=== PATIENT | female | born 1955 | race Two or more races ===

== ENCOUNTER → 2016-05-15 | Outpatient (REF) | payer OTHER ==
[2016-05-15 12:25] LABS: ALBUMIN 4.1 GM/DL (3.2-5.2); ALBUMIN/GLOBULIN RATIO 1.41 (1.00-1.93); ALKALINE PHOSPHATASE 89 U/L (45-117); ALT/SGPT 43 U/L (12-78); ANION GAP 9 MEQ/L (8-16); AST/SGOT 34 U/L (15-37); BILIRUBIN,TOTAL 0.5 MG/DL (0.2-1.0); BLOOD UREA NITROGEN 11 MG/DL (7-18); CALCIUM LEVEL 9.4 MG/DL (8.5-10.1); CARBON DIOXIDE LEVEL 29 MEQ/L (21-32); CHLORIDE LEVEL 104 MEQ/L (98-107); CHOLESTEROL LEVEL 164 MG/DL (<200); GLOMERULAR FILTRATION RATE > 60.0 (>51); GLUCOSE, FASTING 166 MG/DL (70-105); SODIUM LEVEL 142 MEQ/L (136-145); TRIGLYCERIDES LEVEL 158 MG/DL (<150)
== END ==
LOC: M SFHCCLAY 11:09
PROVIDERS: ATTEND Family Medicine
DX: E78.5 Hyperlipidemia, unspecified (principal); E11.9 Type 2 diabetes mellitus without complications; I10 Essential (primary) hypertension

== ENCOUNTER → 2016-06-16 | Outpatient (CLI) | payer OTHER ==
[~2016-06-16] VITALS: Ht 162.6 cm; Wt 102.5 kg
[~2016-06-16] MED LIST: CYCL10TA PO; LIDOCAINE 2% INJ 100 MG/5 ML SDV (FOR ANES.) As Ordered ONE; LISI20TA PO; MIDAZOLAM INJ 2 MG/2 ML VIAL (J2250) As Ordered ONE; NEXI20CA PO; NS 1,000 ML IV SCH; PRAV40TA2 PO; PROPOFOL 200 MG/20 ML VIAL As Ordered ONE
--- NOTE | 2016-06-16 12:07 | ROOR ---
Patient Name: Diana Mathis Procedure Date: 06/16/2016 11:57 AM Date of : 1955 Age: 60 Room: [facility] Gender: Female Note Status: Finalized Procedure: Upper GI endoscopy Indications: Heartburn Providers: Jose Alberto ALFARO MD Referring MD: JAYASHREE PINTO DO Requesting Provider: Medicines: Monitored Anesthesia Care Complications: No immediate complications. Procedure: Pre-Anesthesia Assessment: - The heart rate, respiratory rate, oxygen saturations, blood pressure, adequacy of pulmonary ventilation, and response to care were monitored throughout the procedure. The Endoscope was introduced through the mouth, and advanced to the second part of duodenum. The upper GI endoscopy was accomplished without difficulty. The patient tolerated the procedure well. Findings: The esophagus was normal. The stomach was normal. The examined duodenum was normal. Impression: - Normal esophagus. - Normal stomach. - Normal examined duodenum. - No specimens collected. Recommendation: - Continue present medications. - Follow an antireflux regimen. Jose Alberto Alfaro MD Jose Alberto ALFARO MD 06/16/2016 12:06:31 PM This report has been signed electronically. Number of Addenda: 0 Note Initiated On: 06/16/2016 11:57 AM Estimated Blood Loss: Estimated blood loss: none.
--- NOTE | 2016-06-16 12:21 | ROOR ---
Patient Name: Diana Mathis Procedure Date: 06/16/2016 11:58 AM Date of : 1955 Age: 60 Room: [facility] Gender: Female Note Status: Finalized Procedure: Colonoscopy Indications: Screening for colorectal malignant neoplasm Providers: Jose Alberto ALFARO MD Referring MD: JAYASHREE PINTO DO Requesting Provider: Medicines: Monitored Anesthesia Care Complications: No immediate complications. Procedure: Pre-Anesthesia Assessment: - The heart rate, respiratory rate, oxygen saturations, blood pressure, adequacy of pulmonary ventilation, and response to care were monitored throughout the procedure. The Colonoscope was introduced through the anus and advanced to the cecum, identified by appendiceal orifice and ileocecal valve. The colonoscopy was performed without difficulty. The patient tolerated the procedure well. The quality of the bowel preparation was good. Findings: The perianal exam findings include skin tags. (Exam: Complete, Prep: Good or Excellent.) Small Internal Hemorrhoids. The entire examined colon appeared normal on direct and retroflexion views. Impression: - Perianal skin tags found on perianal exam. - Small Internal Hemorrhoids. - The entire colon is normal on direct and retroflexion views. - No specimens collected. Recommendation: - Repeat colonoscopy in 10 years for screening purposes. Jose Alberto Alfaro MD Jose Alberto ALFARO MD 06/16/2016 12:21:26 PM This report has been signed electronically. Number of Addenda: 0 Note Initiated On: 06/16/2016 11:58 AM Estimated Blood Loss: Estimated blood loss: none.
[2016-06-16 12:40] VITALS: BP 129/86
== END | disposition home or self-care (01) ==
LOC: M OPP 09:39
PROVIDERS: ATTEND Internal Medicine Gastroenterology
DX: Z12.11 Encounter for screening for malignant neoplasm of colon (principal); K64.4 Residual hemorrhoidal skin tags; K64.8 Other hemorrhoids; Z86.010 Personal history of colon polyps; R12 Heartburn; I10 Essential (primary) hypertension; E78.5 Hyperlipidemia, unspecified; Z80.1 Family history of malignant neoplasm of trachea, bronchus and lung; Z80.49 Family history of malignant neoplasm of other genital organs; Z79.899 Other long term (current) drug therapy
CPT/HCPCS: 43235; 99156; 99157; G0121

== ENCOUNTER → 2017-01-14 | Outpatient (CLI) | payer OTHER ==
[~2017-01-14] MED LIST changes: -LIDOCAINE 2% INJ 100 MG/5 ML SDV (FOR ANES.) As Ordered ONE; -MIDAZOLAM INJ 2 MG/2 ML VIAL (J2250) As Ordered ONE; -NS 1,000 ML IV SCH; -PROPOFOL 200 MG/20 ML VIAL As Ordered ONE
[2017-01-14 20:29] LABS: ALBUMIN 4.2 GM/DL (3.2-5.2); ALBUMIN/GLOBULIN RATIO 1.27 (1.00-1.93); ALKALINE PHOSPHATASE 84 U/L (45-117); ALT/SGPT 25 U/L (12-78); ANION GAP 9 MEQ/L (8-16); AST/SGOT 17 U/L (15-37); BILIRUBIN,TOTAL 0.5 MG/DL (0.2-1.0); BLOOD UREA NITROGEN 16 MG/DL (7-18); CALCIUM LEVEL 9.6 MG/DL (8.5-10.1); CARBON DIOXIDE LEVEL 28 MEQ/L (21-32); CHLORIDE LEVEL 103 MEQ/L (98-107); CHOLESTEROL LEVEL 170 MG/DL (<200); CREATININE FOR GFR 0.73 MG/DL (0.55-1.02); GLOMERULAR FILTRATION RATE > 60.0 (>51); GLUCOSE, FASTING 91 MG/DL (70-105); POTASSIUM SERUM 4.3 MEQ/L (3.5-5.1); SODIUM LEVEL 140 MEQ/L (136-145); TOTAL PROTEIN 7.5 GM/DL (6.4-8.2); TRIGLYCERIDES LEVEL 172 MG/DL (<150)
== END ==
LOC: M SMT 12:58
PROVIDERS: ATTEND Family Medicine
DX: E78.5 Hyperlipidemia, unspecified (principal); E11.65 Type 2 diabetes mellitus with hyperglycemia

== ENCOUNTER → 2017-04-20 | Outpatient (REF) | payer OTHER | LOC: M LAB REF 18:41 | DX: D23.11 Other benign neoplasm of skin of right eyelid, including canthus (principal); D23.12 Other benign neoplasm of skin of left eyelid, including canthus; D22.11 Melanocytic nevi of right eyelid, including canthus ==

== ENCOUNTER → 2017-08-05 | Outpatient (REF) | payer OTHER ==
[2017-08-05 19:32] LABS: ESTIMATED AVERAGE GLUCOSE 151 MG/DL (60-110); HEMOGLOBIN A1c 6.9 %
== END ==
LOC: M LABDRAWC 17:30
DX: E11.65 Type 2 diabetes mellitus with hyperglycemia (principal)
CPT/HCPCS: 83036

== ENCOUNTER → 2017-08-12 | Outpatient (CLI) | payer OTHER | LOC: M WHC 12:42 | DX: Z12.39 Encounter for other screening for malignant neoplasm of breast (principal) ==

== ENCOUNTER → 2018-02-07 | Outpatient (CLI) | payer OTHER ==
[2018-02-07 16:26] LABS: ALBUMIN 4.3 GM/DL (3.2-5.2); ALBUMIN/GLOBULIN RATIO 1.43 (1.00-1.93); ALKALINE PHOSPHATASE 104 U/L (45-117); ALT/SGPT 26 U/L (12-78); ANION GAP 10 MEQ/L (8-16); AST/SGOT 15 U/L (7-37); BILIRUBIN,TOTAL 0.6 MG/DL (0.2-1.0); BLOOD UREA NITROGEN 15 MG/DL (7-18); CALCIUM LEVEL 9.6 MG/DL (8.8-10.2); CARBON DIOXIDE LEVEL 30 MEQ/L (21-32); CHLORIDE LEVEL 99 MEQ/L (98-107); CHOLESTEROL LEVEL 152 MG/DL (<200); CHOLESTEROL RISK RATIO 3.304 (<5); CREATININE FOR GFR 0.63 MG/DL (0.55-1.30); GLOMERULAR FILTRATION RATE > 60.0 (>45); GLUCOSE, FASTING 89 MG/DL (70-100); HDL CHOLESTEROL 46 MG/DL (>40); LDL CHOLESTEROL 61 MG/DL (<100); NON-HDL-C 106 MG/DL; SODIUM LEVEL 139 MEQ/L (136-145); TOTAL PROTEIN 7.3 GM/DL (6.4-8.2); TRIGLYCERIDES LEVEL 223 MG/DL (<150)
[2018-02-07 16:57] LABS: ESTIMATED AVERAGE GLUCOSE 143 MG/DL (60-110); HEMOGLOBIN A1c 6.6 %
== END ==
LOC: M LAB 15:22
DX: E11.9 Type 2 diabetes mellitus without complications (principal)
CPT/HCPCS: 80053

== ENCOUNTER → 2018-09-10 | Outpatient (CLI) | payer OTHER ==
[2018-09-10 10:29] LABS: BASO # 0.1 10^3/uL (0.0-0.2); EOS # 0.2 10^3/uL (0.0-0.50); EOS % 2.1 % (0.0-3.0); HEMATOCRIT 43.1 % (36.0-47.0); HEMOGLOBIN 14.7 g/dl (12.0-15.5); LYMPH # 2.4 10^3/uL (1.5-4.5); LYMPH % 34.2 % (24.0-44.0); MEAN CORPUSCULAR HEMOGLOBIN 29.8 pg (27.0-33.0); MEAN CORPUSCULAR HGB CONC 34.1 g/dl (32.0-36.5); MEAN CORPUSCULAR VOLUME 87.2 fl (80.0-96.0); MONO # 0.4 10^3/uL (0.0-0.8); MONO % 5.5 % (0.0-5.0); NEUTROPHILS % 56.6 % (36.0-66.0); PLATELET COUNT, AUTOMATED 310 10^3/uL (150-450); RED BLOOD COUNT 4.94 10^6/uL (4.00-5.40)
[2018-09-10 10:48] LABS: HEMOGLOBIN A1c 7.2 %
[2018-09-10 11:01] LABS: ALBUMIN 3.9 GM/DL (3.2-5.2); ALT/SGPT 37 U/L (12-78); BILIRUBIN,TOTAL 0.5 MG/DL (0.2-1.0); BLOOD UREA NITROGEN 18 MG/DL (7-18); CALCIUM LEVEL 9.2 MG/DL (8.8-10.2); CARBON DIOXIDE LEVEL 29 MEQ/L (21-32); CHLORIDE LEVEL 105 MEQ/L (98-107); CHOLESTEROL LEVEL 149 MG/DL (<200); CHOLESTEROL RISK RATIO 3.386 (<5); CREATININE FOR GFR 0.72 MG/DL (0.55-1.30); GLOMERULAR FILTRATION RATE > 60.0 (>45); GLUCOSE, FASTING 130 MG/DL (70-100); HDL CHOLESTEROL 44 MG/DL (>40); LDL CHOLESTEROL 51 MG/DL (<100); NON-HDL-C 105 MG/DL; POTASSIUM SERUM 4.1 MEQ/L (3.5-5.1); SODIUM LEVEL 140 MEQ/L (136-145); TOTAL PROTEIN 7.1 GM/DL (6.4-8.2); TRIGLYCERIDES LEVEL 270 MG/DL (<150)
== END ==
LOC: M LAB 09:57
PROVIDERS: ATTEND Nurse Practitioner Family
DX: I10 Essential (primary) hypertension (principal); E11.9 Type 2 diabetes mellitus without complications; E66.9 Obesity, unspecified; E78.5 Hyperlipidemia, unspecified

== ENCOUNTER → 2018-09-13 | Outpatient (CLI) | payer OTHER ==
--- NOTE | 2018-09-13 16:53 | REP ---
LEFT SHOULDER, THREE VIEWS: Three views of the left shoulder are performed. No acute fracture or dislocation is seen. There is mild narrowing of the acromioclavicular joint. There are no other significant findings. IMPRESSION: Mild degenerative changes of the acromioclavicular joint without other acute finding.
== END ==
LOC: M CLY 14:52
PROVIDERS: ATTEND Nurse Practitioner Family
DX: M19.012 Primary osteoarthritis, left shoulder (principal)
CPT/HCPCS: 73030; G0463

== ENCOUNTER → 2019-05-01 | Outpatient (REF) | payer OTHER ==
[~2019-05-01] MED LIST changes: -LISI20TA PO; +LISI20TA19 PO
[2019-05-02 12:42] LABS: BLOOD UREA NITROGEN 11 MG/DL (7-18); CALCIUM LEVEL 9.4 MG/DL (8.8-10.2); CARBON DIOXIDE LEVEL 30 MEQ/L (21-32); CHLORIDE LEVEL 103 MEQ/L (98-107); CREATININE FOR GFR 0.68 MG/DL (0.55-1.30); GLOMERULAR FILTRATION RATE > 60.0 (>45); GLUCOSE, FASTING 100 MG/DL (70-100); POTASSIUM SERUM 4.1 MEQ/L (3.5-5.1); SODIUM LEVEL 140 MEQ/L (136-145)
[2019-05-02 13:08] LABS: HEMOGLOBIN A1c 7.2 %
== END ==
LOC: M SFHCCLAY 14:02
PROVIDERS: ATTEND Nurse Practitioner Family
DX: E11.9 Type 2 diabetes mellitus without complications (principal)
CPT/HCPCS: 80048; 82672; 83036; 90471; 90472; 90682; 90732; G0463

== ENCOUNTER → 2019-11-04 | Outpatient (REF) | payer OTHER ==
[~2019-11-04] MED LIST changes: +CYCL-707 PO; -CYCL10TA PO; -LISI20TA19 PO; +LISI20TA35 PO
[2019-12-02 09:53] LABS: BASO # 0.1 10^3/uL (0.0-0.2); EOS # 0.2 10^3/uL (0.0-0.5); EOS % 2.5 % (0.0-3.0); HEMATOCRIT 44.2 % (36.0-47.0); HEMOGLOBIN 14.1 g/dl (12.0-15.5); LYMPH # 2.9 10^3/uL (1.5-5.0); LYMPH % 35.9 % (24.0-44.0); MEAN CORPUSCULAR HGB CONC 31.9 g/dl (32.0-36.5); MEAN CORPUSCULAR VOLUME 90.9 fl (80.0-96.0); MONO # 0.5 10^3/uL (0.0-0.8); MONO % 6.6 % (0.0-5.0); NEUTROPHILS # 4.3 10^3/uL (1.5-8.5); NEUTROPHILS % 53.8 % (36.0-66.0); PLATELET COUNT, AUTOMATED 341 10^3/uL (150-450); RED BLOOD COUNT 4.86 10^6/uL (4.00-5.40)
[2019-12-18 15:53] LABS: ALBUMIN 3.8 GM/DL (3.2-5.2); ALT/SGPT 37 U/L (12-78); BILIRUBIN,TOTAL 0.6 MG/DL (0.2-1.0); BLOOD UREA NITROGEN 15 MG/DL (7-18); CALCIUM LEVEL 9.5 MG/DL (8.8-10.2); CARBON DIOXIDE LEVEL 30 MEQ/L (21-32); CHLORIDE LEVEL 106 MEQ/L (98-107); CHOLESTEROL LEVEL 124 MG/DL (<200); CHOLESTEROL RISK RATIO 3.444 (<5); CREATININE FOR GFR 0.76 MG/DL (0.55-1.30); GLOMERULAR FILTRATION RATE > 60.0 (>45); GLUCOSE, FASTING 155 MG/DL (70-100); HDL CHOLESTEROL 36 MG/DL (>40); LDL CHOLESTEROL 49 MG/DL (<100); NON-HDL-C 88 MG/DL; SODIUM LEVEL 140 MEQ/L (136-145); TOTAL PROTEIN 7.1 GM/DL (6.4-8.2); TRIGLYCERIDES LEVEL 194 MG/DL (<150)
== END ==
LOC: M WUC 09:57
PROVIDERS: ATTEND Nurse Practitioner Family
DX: E11.9 Type 2 diabetes mellitus without complications (principal)

== ENCOUNTER → 2020-05-20 | Outpatient (CLI) | payer OTHER ==
[2020-05-20 17:46] LABS: HEMOGLOBIN A1c 6.8 %
[2020-05-20 18:04] LABS: ALBUMIN 3.7 GM/DL (3.2-5.2); ALT/SGPT 25 U/L (12-78); BILIRUBIN,TOTAL 0.4 MG/DL (0.2-1.0); BLOOD UREA NITROGEN 16 MG/DL (7-18); CALCIUM LEVEL 9.6 MG/DL (8.8-10.2); CARBON DIOXIDE LEVEL 32 MEQ/L (21-32); CHLORIDE LEVEL 103 MEQ/L (98-107); CHOLESTEROL LEVEL 153 MG/DL (<200); CHOLESTEROL RISK RATIO 3.731 (<5); CREATININE FOR GFR 0.58 MG/DL (0.55-1.30); GLOMERULAR FILTRATION RATE > 60.0 (>45); GLUCOSE, FASTING 97 MG/DL (70-100); HDL CHOLESTEROL 41 MG/DL (>40); LDL CHOLESTEROL 60 MG/DL (<100); NON-HDL-C 112 MG/DL; SODIUM LEVEL 140 MEQ/L (136-145); TOTAL PROTEIN 6.8 GM/DL (6.4-8.2); TRIGLYCERIDES LEVEL 259 MG/DL (<150)
== END ==
LOC: M WUC 15:21
PROVIDERS: ATTEND Nurse Practitioner Family
DX: E78.5 Hyperlipidemia, unspecified (principal); E11.9 Type 2 diabetes mellitus without complications; I10 Essential (primary) hypertension; E66.9 Obesity, unspecified

== ENCOUNTER → 2020-06-17 | Outpatient (REF) | payer OTHER | LOC: M SFHCCLAY 14:18 | PROVIDERS: ATTEND Nurse Practitioner Family | DX: Z12.4 Encounter for screening for malignant neoplasm of cervix (principal) ==

== ENCOUNTER → 2021-02-12 | Outpatient (REF) | payer OTHER | LOC: M LAB REF 14:14 | PROVIDERS: ATTEND Physician Assistant | DX: D49.2 Neoplasm of unspecified behavior of bone, soft tissue, and skin (principal) ==

== ENCOUNTER → 2021-04-17 | Outpatient (REF) | payer OTHER, SELFPAY ==
[2021-04-18 12:21] LABS: BASO # 0.1 10^3/uL (0.0-0.2); BASO % 0.8 % (0.0-1.0); EOS # 0.1 10^3/uL (0.0-0.5); EOS % 1.3 % (0.0-3.0); HEMATOCRIT 44.6 % (36.0-47.0); HEMOGLOBIN 14.7 g/dl (12.0-15.5); LYMPH # 3.9 10^3/uL (1.5-5.0); MEAN CORPUSCULAR HEMOGLOBIN 29.3 pg (27.0-33.0); MEAN CORPUSCULAR VOLUME 88.8 fl (80.0-96.0); MONO # 0.5 10^3/uL (0.0-0.8); MONO % 5.2 % (2.0-8.0); NEUTROPHILS # 5.6 10^3/uL (1.5-8.5); NEUTROPHILS % 54.4 % (36.0-66.0); PLATELET COUNT, AUTOMATED 388 10^3/uL (150-450); RED BLOOD COUNT 5.02 10^6/uL (4.00-5.40); WHITE BLOOD COUNT 10.2 10^3/uL (4.0-10.0)
[2021-04-18 12:57] LABS: ALBUMIN 4.4 GM/DL (3.2-5.2); ALT/SGPT 34 U/L (12-78); BILIRUBIN,TOTAL 0.5 MG/DL (0.2-1.0); BLOOD UREA NITROGEN 16 MG/DL (7-18); CARBON DIOXIDE LEVEL 29 MEQ/L (21-32); CHLORIDE LEVEL 101 MEQ/L (98-107); FREE T4 1.06 NG/DL (0.76-1.46); GLOMERULAR FILTRATION RATE > 60.0 (>45); GLUCOSE, FASTING 113 MG/DL (70-100); POTASSIUM SERUM 5.6 MEQ/L (3.5-5.1); SODIUM LEVEL 137 MEQ/L (136-145); TOTAL PROTEIN 7.6 GM/DL (6.4-8.2)
[2021-04-18 13:05] LABS: HEMOGLOBIN A1c 6.6 %
== END ==
LOC: M SFHCCLAY 13:42
PROVIDERS: ATTEND Nurse Practitioner Family
DX: E11.9 Type 2 diabetes mellitus without complications (principal); I10 Essential (primary) hypertension

== ENCOUNTER → 2021-11-19 | Outpatient (REF) | payer OTHER ==
[2021-11-19 17:37] LABS: ALBUMIN 4.1 GM/DL (3.2-5.2); ALT/SGPT 28 U/L (12-78); BILIRUBIN,TOTAL 0.5 MG/DL (0.2-1.0); BLOOD UREA NITROGEN 13 MG/DL (7-18); CALCIUM LEVEL 9.4 MG/DL (8.8-10.2); CARBON DIOXIDE LEVEL 28 MEQ/L (21-32); CHLORIDE LEVEL 104 MEQ/L (98-107); CHOLESTEROL LEVEL 166 MG/DL (<200); CHOLESTEROL RISK RATIO 4.048 (<5); CREATININE FOR GFR 0.66 MG/DL (0.55-1.30); GLOMERULAR FILTRATION RATE > 60.0 (>45); GLUCOSE, FASTING 139 MG/DL (70-100); HDL CHOLESTEROL 41 MG/DL (>40); LDL CHOLESTEROL 47 MG/DL (<100); NON-HDL-C 125 MG/DL; POTASSIUM SERUM 4.4 MEQ/L (3.5-5.1); SODIUM LEVEL 138 MEQ/L (136-145); TOTAL PROTEIN 7.4 GM/DL (6.4-8.2); TRIGLYCERIDES LEVEL 391 MG/DL (<150)
[2021-11-19 17:55] LABS: HEMOGLOBIN A1c 6.9 %
== END ==
LOC: M SFHCCLAY 11:16
PROVIDERS: ATTEND Nurse Practitioner Family
DX: I10 Essential (primary) hypertension (principal); E11.9 Type 2 diabetes mellitus without complications

== ENCOUNTER → 2022-04-20 | Outpatient (CLI) | payer OTHER ==
[2022-04-20 10:24] LABS: ALBUMIN 3.8 G/DL (3.2-5.2); ALKALINE PHOSPHATASE 90 U/L (46-116); ALT/SGPT 23 U/L (7.0-40); AST/SGOT 21 U/L (<34); BILIRUBIN,TOTAL 0.5 MG/DL (0.3-1.2); BLOOD UREA NITROGEN 15 MG/DL (9-23); CALCIUM LEVEL 9.8 MG/DL (8.3-10.6); CARBON DIOXIDE LEVEL 26 MMOL/L (20-31); CHLORIDE LEVEL 104 MMOL/L (98-107); CREATININE FOR GFR 0.61 MG/DL (0.55-1.30); GLOMERULAR FILTRATION RATE > 60.0 (>45); GLUCOSE, FASTING 156 MG/DL (74-106); POTASSIUM SERUM 4.2 MMOL/L (3.5-5.1); SODIUM LEVEL 138 MMOL/L (136-145); TOTAL PROTEIN 6.6 G/DL (5.7-8.2)
[2022-04-20 10:59] LABS: HEMOGLOBIN A1c 6.8 % (4.0-6.0)
== END ==
LOC: M LAB 09:21
PROVIDERS: ATTEND Nurse Practitioner Family
DX: E78.5 Hyperlipidemia, unspecified (principal); E11.9 Type 2 diabetes mellitus without complications; I10 Essential (primary) hypertension

== ENCOUNTER → 2022-07-22 | Outpatient (REF) | payer OTHER | LOC: M SFHCCLAY 17:31 | PROVIDERS: ATTEND Nurse Practitioner Family | DX: Z01.419 Encounter for gynecological examination (general) (routine) without abnormal findings (principal) ==

== ENCOUNTER → 2022-07-30 | Outpatient (CLI) | payer OTHER ==
[2022-07-30 10:57] LABS: HEMATOCRIT 42.5 % (36.0-47.0); MEAN CORPUSCULAR HEMOGLOBIN 29.2 pg (27.0-33.0); MEAN CORPUSCULAR HGB CONC 32.9 g/dl (32.0-36.5); MEAN CORPUSCULAR VOLUME 88.7 fl (80.0-96.0); PLATELET COUNT, AUTOMATED 316 10^3/uL (150-450); RED BLOOD COUNT 4.79 10^6/uL (4.00-5.40)
[2022-07-30 11:32] LABS: ALBUMIN 3.9 G/DL (3.2-5.2); ALKALINE PHOSPHATASE 86 U/L (46-116); ALT/SGPT 25 U/L (7.0-40); AST/SGOT 21 U/L (<34); BILIRUBIN,TOTAL 0.5 MG/DL (0.3-1.2); BLOOD UREA NITROGEN 16 MG/DL (9-23); CALCIUM LEVEL 9.3 MG/DL (8.3-10.6); CARBON DIOXIDE LEVEL 28 MMOL/L (20-31); CHLORIDE LEVEL 104 MMOL/L (98-107); CREATININE FOR GFR 0.65 MG/DL (0.55-1.30); GLOMERULAR FILTRATION RATE > 60.0 (>45); GLUCOSE, FASTING 136 MG/DL (74-106); SODIUM LEVEL 139 MMOL/L (136-145); TOTAL PROTEIN 6.6 G/DL (5.7-8.2)
[2022-07-30 11:43] LABS: HEPATITIS B SURFACE ANTIGEN NEGATIVE (NEGATIVE)
[2022-07-30 11:56] LABS: HIV 1&2 SCREEN CENTAUR NEGATIVE (NEGATIVE)
[2022-07-30 12:05] LABS: HEPATITIS B CORE ANTIBODY IGM NEGATIVE (NEGATIVE)
== END ==
LOC: M LAB 09:20
PROVIDERS: ATTEND Physician Assistant
DX: Z79.899 Other long term (current) drug therapy (principal)

== ENCOUNTER → 2023-10-26 | Outpatient (CLI) | payer OTHER ==
[2023-10-26 16:00] LABS: CREATININE, URINE 85.5 MG/DL
[2023-10-26 16:01] LABS: MAU/CREAT RATIO 16.3 MCG/MG (0.0-30.0)
[2023-10-26 16:04] LABS: ALBUMIN 3.9 G/DL (3.2-5.2); ALKALINE PHOSPHATASE 99 U/L (46-116); ALT/SGPT 32 U/L (7.0-40); AST/SGOT 24 U/L (<34); BILIRUBIN,TOTAL 0.6 MG/DL (0.3-1.2); BLOOD UREA NITROGEN 14 MG/DL (9-23); CALCIUM LEVEL 9.8 MG/DL (8.3-10.6); CARBON DIOXIDE LEVEL 28 MMOL/L (20-31); CHLORIDE LEVEL 104 MMOL/L (98-107); CHOLESTEROL LEVEL 155 MG/DL (<200); CHOLESTEROL RISK RATIO 3.94 (<5); CREATININE FOR GFR 0.58 MG/DL (0.55-1.30); GLOMERULAR FILTRATION RATE > 60.0 (>45); GLUCOSE, FASTING 145 MG/DL (74-106); HDL CHOLESTEROL 39.3 MG/DL (>40); LDL CHOLESTEROL 54.3 MG/DL (<100); NON-HDL-C 115.7 MG/DL; POTASSIUM SERUM 4.8 MMOL/L (3.5-5.1); SODIUM LEVEL 138 MMOL/L (136-145); TOTAL PROTEIN 6.8 G/DL (5.7-8.2); TRIGLYCERIDES LEVEL 307 MG/DL (<150)
== END ==
LOC: M PLALAB 11:51
PROVIDERS: ATTEND Nurse Practitioner Family
DX: L40.9 Psoriasis, unspecified (principal)

== ENCOUNTER → 2023-10-27 | Outpatient (REF) | payer OTHER ==
[2023-10-27 12:28] LABS: HEMOGLOBIN A1c 7.4 % (4.0-6.0)
== END ==
LOC: M SFHCCLAY 08:51
PROVIDERS: ATTEND Nurse Practitioner Family
DX: E11.9 Type 2 diabetes mellitus without complications (principal)

== ENCOUNTER → 2024-01-21 | Outpatient (REF) | payer OTHER ==
[2024-01-21 12:32] LABS: ALBUMIN 3.8 G/DL (3.2-5.2); ALKALINE PHOSPHATASE 105 U/L (35-104); ALT/SGPT 26 U/L (7.0-40); AST/SGOT 15 U/L (<34); BILIRUBIN,TOTAL 0.4 MG/DL (0.3-1.2); BLOOD UREA NITROGEN 13 MG/DL (9-23); CALCIUM LEVEL 10.1 MG/DL (8.3-10.6); CARBON DIOXIDE LEVEL 30 MMOL/L (20-31); CHLORIDE LEVEL 107 MMOL/L (98-107); CREATININE FOR GFR 0.59 MG/DL (0.55-1.30); GLOMERULAR FILTRATION RATE > 60.0 (>45); GLUCOSE, FASTING 135 MG/DL (74-106); POTASSIUM SERUM 4.6 MMOL/L (3.5-5.1); SODIUM LEVEL 142 MMOL/L (136-145); TOTAL PROTEIN 6.9 G/DL (5.7-8.2)
[2024-01-21 13:02] LABS: HEMOGLOBIN A1c 6.9 % (4.0-6.0)
== END ==
LOC: M SFHCCLAY 08:29
PROVIDERS: ATTEND Physician Assistant
DX: E11.9 Type 2 diabetes mellitus without complications (principal)

== ENCOUNTER → 2024-04-18 | Outpatient (REF) | payer OTHER ==
[2024-04-18 12:41] LABS: HEMOGLOBIN A1c 6.2 % (4.0-6.0)
[2024-04-18 12:47] LABS: ALBUMIN 3.7 G/DL (3.2-5.2); ALKALINE PHOSPHATASE 103 U/L (35-104); ALT/SGPT 22 U/L (7.0-40); AST/SGOT 18 U/L (<34); BILIRUBIN,TOTAL 0.4 MG/DL (0.3-1.2); BLOOD UREA NITROGEN 14 MG/DL (9-23); CALCIUM LEVEL 9.9 MG/DL (8.3-10.6); CARBON DIOXIDE LEVEL 28 MMOL/L (20-31); CHLORIDE LEVEL 104 MMOL/L (98-107); CREATININE FOR GFR 0.61 MG/DL (0.55-1.30); GLOMERULAR FILTRATION RATE > 60.0 (>45); GLUCOSE, FASTING 102 MG/DL (74-106); POTASSIUM SERUM 4.2 MMOL/L (3.5-5.1); SODIUM LEVEL 142 MMOL/L (136-145)
== END ==
LOC: M SFHCCLAY 10:25
PROVIDERS: ATTEND Nurse Practitioner Family
DX: E11.9 Type 2 diabetes mellitus without complications (principal)

== ENCOUNTER → 2024-07-25 | Outpatient (REF) | payer OTHER ==
[2024-07-25 12:28] LABS: HEMOGLOBIN A1c 6.7 % (4.0-6.0)
[2024-07-25 12:36] LABS: MAU/CREAT RATIO 6.4 MCG/MG (0.0-30.0)
[2024-07-25 12:39] LABS: ALBUMIN 3.9 G/DL (3.2-5.2); ALKALINE PHOSPHATASE 111 U/L (35-104); ALT/SGPT 28 U/L (7.0-40); AST/SGOT 25 U/L (<34); BILIRUBIN,TOTAL 0.5 MG/DL (0.3-1.2); BLOOD UREA NITROGEN 19 MG/DL (9-23); CALCIUM LEVEL 9.9 MG/DL (8.3-10.6); CARBON DIOXIDE LEVEL 30 MMOL/L (20-31); CHLORIDE LEVEL 103 MMOL/L (98-107); CHOLESTEROL LEVEL 162 MG/DL (<200); CHOLESTEROL RISK RATIO 3.95 (<5); CREATININE FOR GFR 0.64 MG/DL (0.55-1.30); GLOMERULAR FILTRATION RATE > 90.0 (>45); GLUCOSE, FASTING 135 MG/DL (74-106); LDL CHOLESTEROL 92.4 MG/DL (<100); POTASSIUM SERUM 4.3 MMOL/L (3.5-5.1); SODIUM LEVEL 141 MMOL/L (136-145); TOTAL PROTEIN 7.2 G/DL (5.7-8.2); TRIGLYCERIDES LEVEL 143 MG/DL (<150)
[2024-07-25 12:40] LABS: THYROID STIMULATING HORMONE 1.842 uIU/ML (0.55-4.78)
[2024-07-25 12:41] LABS: BASO # 0.1 10^3/uL (0.0-0.2); BASO % 1.3 % (0.0-1.0); EOS # 0.1 10^3/uL (0.0-0.5); EOS % 2.1 % (0.0-3.0); FREE T4 1.13 NG/DL (0.89-1.76); HEMATOCRIT 43.2 % (36.0-47.0); HEMOGLOBIN 14.3 g/dl (12.0-15.5); LYMPH # 2.9 10^3/uL (1.5-5.0); LYMPH % 42.1 % (24.0-44.0); MEAN CORPUSCULAR HEMOGLOBIN 28.6 pg (27.0-33.0); MEAN CORPUSCULAR HGB CONC 33.1 g/dl (32.0-36.5); MEAN CORPUSCULAR VOLUME 86.4 fl (80.0-96.0); MONO # 0.4 10^3/uL (0.0-0.8); MONO % 6.5 % (2.0-8.0); NEUTROPHILS # 3.3 10^3/uL (1.5-8.5); NEUTROPHILS % 47.7 % (36.0-66.0); PLATELET COUNT, AUTOMATED 248 10^3/uL (150-450); WHITE BLOOD COUNT 6.8 10^3/uL (4.0-10.0)
== END ==
LOC: M SFHCCLAY 08:24
PROVIDERS: ATTEND Nurse Practitioner Family
DX: E11.9 Type 2 diabetes mellitus without complications (principal); I10 Essential (primary) hypertension; L40.9 Psoriasis, unspecified

== ENCOUNTER → 2025-03-01 | Outpatient (REF) | payer OTHER ==
[~2025-03-01] MED LIST changes: -PRAV40TA2 PO; +PRAV40TA85 PO
[2025-03-01 13:08] LABS: ALT/SGPT 24 U/L (7.0-40); AST/SGOT 19 U/L (<34); CALCIUM LEVEL 9.0 MG/DL (8.3-10.6); CARBON DIOXIDE LEVEL 27 MMOL/L (20-31); CHLORIDE LEVEL 104 MMOL/L (98-107); CHOLESTEROL LEVEL 160 MG/DL (<200); CHOLESTEROL RISK RATIO 3.89 (<5); CREATININE FOR GFR 0.67 MG/DL (0.55-1.30); GLOMERULAR FILTRATION RATE > 90.0 (>45); LDL CHOLESTEROL 77.5 MG/DL (<100); NON-HDL-C 118.9 MG/DL; POTASSIUM SERUM 4.3 MMOL/L (3.5-5.1); SODIUM LEVEL 141 MMOL/L (136-145); TRIGLYCERIDES LEVEL 207 MG/DL (<150)
[2025-03-01 13:09] LABS: FREE T4 1.10 NG/DL (0.89-1.76)
[2025-03-01 13:29] LABS: ESTIMATED AVERAGE GLUCOSE 166.0 MG/DL (60-110)
== END ==
LOC: M SFHCCLAY 07:41
PROVIDERS: ATTEND Nurse Practitioner Family
DX: I10 Essential (primary) hypertension (principal); E11.9 Type 2 diabetes mellitus without complications